=== PATIENT | male | born 2000 | race Caucasian/White ===

== ENCOUNTER 2021-05-29 09:22 | Emergency (ER) | payer OTHER, SELFPAY ==
[2021-05-29 10:46] VITALS: BP 146/89; PULSE 106; RESP 18; TEMP 36.8; O2SAT 97; BMI 34.7
--- NOTE | 2021-05-29 10:51 | HMH.EDUTC ---
[facility] [place] Disposition Clinical Impression: URI (upper respiratory infection) Qualifiers: URI type: unspecified URI Qualified Code(s): J06.9 - Acute upper respiratory infection, unspecified Disposition: Home, Self-Care Condition on Discharge: Good Instructions: Sinusitis, DI for Sinusitis, DI for Cough -- Adult, DI for COVID-19 (Suspected or Confirmed ) Additional Instructions: *Monitor Temp, Over the counter Motrin or Tylenol as directed/as needed Tylenol every 4 hours and Motrin every 6 hours (as long as your family doctor has told you that you can take it) for fever or pain. and straight to ER if unable to lower temp less than 101.0 after medication given *Warm salt water gargles may help to soothe the throat *Throat Lozenges *Warm fluids like tea with honey may help to soothe the throat *Sleep elevated *Humidifier/Vaporizer *Flonase 2 sprays in each nostril daily but be aware that it may take 2-3 days before you notice improvement *Bromfed may cause drowsiness. Know how it effects you (your child) before driving, caring for small child, or sending your child to school. Not other antihistamines/allergy medications while taking bromfed Your throat swab was sent for culture. Those results are typically sent to your primary care. Be sure to follow up in 2-3 days with your family doctor/primary care physician if no improvement so they can review those result and treat if necessary. If you don?t have a primary care doctor, I recommend you get one but in the mean time, you will have to return to a walk in clinic Follow up IMMEDIATELY for new or worsening symptoms or no Noticeable improvement over the next 48-72 hours. 911 for difficulty breathing or swallowing You were tested for today for COVID19 your test result should be back in the next 24-48 hours, you may check your results on the [facility] My Health Portal if you have trouble logging on you may call support to help you You was given a handout with instructions for Self Quarantine and Self isolation for while you wait on test results and what to do if they are positive If you are positive the Health Dept will be contacting you also Make sure to take your Vitamins Vit. C Vit D and Zinc if you can take them Prescriptions: Benzonatate [Benzonatate 100mg cap] 100 mg PO Q8HP PRN #15 cap PRN Reason: Cough Transmission Status: Received by [facility]/pharmacy #[id number] Referrals: America Wall APRN [Primary Care Provider] - As needed Forms: Work/School Release Medical Decision Making - [place] Inquiry Pt receiving controlled substance: No [place] was queried for this patient: No Vital Signs: 05/29/21 10:46 05/29/21 11:06 Temperature 98.2 F 98.2 F Temperature Source Oral Pulse Rate 106 H Pulse Rate [Left] 106 H Respiratory Rate 18 18 Blood Pressure 146/89 H Blood Pressure [Right Arm] 146/89 H Blood Pressure Mean [Right Arm] 108 02 Sat by Pulse Oximetry 97 - Lab Data Lab results reviewed: Yes: I reviewed the patient's lab results. Lab Results 05/29/21 10:28: Influenza Type A Ag Negative, Influenza Type B Ag Negative 05/29/21 10:28: Strep Scn Rapid Clinic Negative 05/29/21 10:45: Chlamy pneumoniae PCR Not detected, Adenovirus (PCR) Not detected, B. pertussis DNA (PCR) Not detected, Coronavirus OC43 (PCR) Not detected, Coronavirus HKU1 (PCR) Not detected, Coronavirus 229E (PCR) Not detected, SARS-CoV-2 (PCR) Detected A, Coronavirus NL63 (PCR) Not detected, Human Metapneumovir PCR Not detected, Influenza A (H1) PCR Not detected, Influ A (H1N1/09) PCR Not detected, Influenza A (H3) PCR Not detected, Influenza Type A (PCR) Not detected, Influenza Type B (PCR) Not detected, M. pneumoniae (PCR) Not detected, Parainfluenza 1 (PCR) Not detected, Parainfluenza 2 (PCR) Not detected, Parainfluenza 3 (PCR) Not detected, Parainfluenza 4 (PCR) Not detected, RSV (PCR) Not detected, Entero/Rhino (PCR) Not detected Orders (Tests/Meds): ORDERS Category Date Time Status Strep Screen Con
[2021-05-29 10:57] LABS: UTC Influenza A Antigen Negative (Negative); UTC Strep Screen (Rapid) Negative (Negative)
[2021-05-29 10:58] LABS: UTC Influenza B Antigen Negative (Negative)
[2021-05-29 11:00] LABS: Adenovirus,PCR Not Detected (NotDetected); Bordetella Pertussis Not Detected (NotDetected); Chlamydophila Pneumoniae, PCR Not Detected (NotDetected); Coronavirus 229E Not Detected (NotDetected); Coronavirus NL63 Not Detected (NotDetected); Coronavirus OC43 Not Detected (NotDetected); Coronovirus HKU1,PCR Not Detected (NotDetected); Human Metapneumovirus Not Detected (NotDetected); Influenza A, PCR Not Detected (NotDetected); Influenza AH1, 2009 Not Detected (NotDetected); Influenza AH1, PCR Not Detected (NotDetected); Influenza AH3,PCR Not Detected (NotDetected); Influenza B, PCR Not Detected (NotDetected); Mycoplasma Pneumoniae, PCR Not Detected (NotDetected); Parainfluenza 1, PCR Not Detected (NotDetected); Parainfluenza 2, PCR Not Detected (NotDetected); Parainfluenza 3, PCR Not Detected (NotDetected); Parainfluenza 4, PCR Not Detected (NotDetected); Respiratory Syncytial Virus Not Detected (NotDetected); Rhinovirus/Enterovirus Not Detected (NotDetected)
[2021-05-29 11:06] VITALS: BP 146/89; PULSE 106; RESP 18; TEMP 36.8
[2021-05-29 15:03] LABS: Coronavirus 19, PCR Detected (NotDetected)
== END 2021-05-29 11:26 | disposition home or self-care (01) ==
PROVIDERS: Emergency Provider Nurse Practitioner; PCP Nurse Practitioner
DX: U07.1 COVID-19 (principal); J06.9 Acute upper respiratory infection, unspecified
CPT/HCPCS: 87581; 87632; 87798; 87804; 87880; 99203; C9803; G0463; U0003; U0005

== ENCOUNTER 2021-06-26 10:57 | Emergency (ER) | payer OTHER, SELFPAY ==
[2021-06-26 11:25] VITALS: BP 145/89; PULSE 85; RESP 19; TEMP 37; O2SAT 99; BMI 34.7
--- NOTE | 2021-06-26 11:38 | HMH.EDUTC ---
[facility] [place] Clinical Impression: Nausea & vomiting Qualifiers: Vomiting type: unspecified Qualified Code(s): R11.2 - Nausea with vomiting, unspecified Disposition: Home, Self-Care Condition on Discharge: Good Instructions: DI for Gastroesophageal Reflux Disease (GERD), GERD Diet, Ondansetron, Omeprazole Additional Instructions: Drink extra fluids with and between meals. If you have difficulty drinking, try very small amounts of water or suck on ice chips. ? Avoid fruit juices, as these do not replace minerals and can actually increase diarrhea. ? Children and adults can use sports drinks to replenish electrolytes. Younger children and infants should use products formulated for children, like oral rehydration solutions. ? Eat food in small amounts and let your stomach recover. ? Get lots of rest. You may feel tired or weak. ? No greasy or fried foods for the next 24-48 hours BRAT diet Bananas Rice Apples and [place] ? Make sure to drink plenty of liquids ? Return if needed ? Straight to ER if any life threatening symptoms ? Zofran as prescribed Avoid eating and laying down Avoid spicy foods ? Follow up with family doctor in the next 48-72 hours if no improvement or any worsening of symptoms Return if needed Prescriptions: Omeprazole [Omeprazole 20mg Capsule] 20 mg PO DAILY 30 Days #30 cap Transmission Status: Pending to [id number] Ondansetron [Zofran 4mg ODT] 4 mg PO TIDP PRN #10 tab PRN Reason: Vomiting Transmission Status: Pending to [id number] Referrals: Provider,Referral, MD [Primary Care Provider] - As needed Forms: Work/School Release Time of Disposition: 11:50 Medical Decision Making - [place] Inquiry Pt receiving controlled substance: No [place] was queried for this patient: No Vital Signs: 06/26/21 11:25 Temperature 98.6 F Temperature Source Oral Pulse Rate [Left] 85 Respiratory Rate 19 Blood Pressure [Right Arm] 145/89 H Blood Pressure Mean [Right Arm] 107 02 Sat by Pulse Oximetry 99 [facility] [place] - General Stated complaint: nausea, vomiting, diarrhea Time Seen by Provider: 06/26/21 11:38 Mode of Arrival: Ambulatory Source of Information: Patient Limitations: No Limitations Description of Symptoms (Recalled from Triage Doc. by RN): pt c/o n/v x5 days and sinus drainage. HEENT Symptoms (Recalled from RN notes): Yes Resp Symptoms (Recalled from RN notes): No Skin Symptoms (Recalled from RN notes): No MS Symptoms (Recalled from RN notes): No Functional Status (Recalled from RN notes): wnl - History of Present Illness Provider Complaint: Patient states that he for the last 5-6 days he has been having nausea and vomiting in the morning and having maybe one or two episodes of diarrhea and then it gets better as the day goes on States that he does eat alot of spicy foods and gets heartburn occasionally but for the last week he has continued to have nausea - Related Data Previous Rx's Medication Instructions Recorded Benzonatate [Benzonatate 100mg 100 mg PO Q8HP PRN #15 cap 05/29/21 cap] Omeprazole [Omeprazole 20mg 20 mg PO DAILY 30 Days #30 cap 06/26/21 Capsule] Ondansetron [Zofran 4mg ODT] 4 mg PO TIDP PRN #10 tab 06/26/21 Allergies Allergy/AdvReac Type Severity Reaction Status Date / Time No Known Allergies Allergy Verified 05/29/21 10:49 - Worker's Comp Is this a Worker's Comp case?: No [facility] History - Hepatitis A Screen Drug use history?: No High risk sexual behaviors?: No History of sexually transmitted infection?: No Currently employed?: No Childcare worker?: No Do you have indoor plumbing?: Yes Do you have electricity?: Yes Attestation statement:: This patient has been screened for Hepatitis A risk factors. I have reviewed the patient's past medical history: Yes ROS Obtained: Yes All systems reviewed & no additional complaints, Yes Systems reviewed as appropriate & no additional complaints - Constitutional Constitu
[2021-06-26 11:52] VITALS: BP 145/89; PULSE 85; RESP 18; TEMP 36.6
== END 2021-06-26 11:53 | disposition home or self-care (01) ==
PROVIDERS: Emergency Provider Nurse Practitioner
DX: R11.2 Nausea with vomiting, unspecified (principal); R19.7 Diarrhea, unspecified
CPT/HCPCS: 99202; G0463